=== PATIENT | female | born 1945 | race Caucasian/White ===

== ENCOUNTER 2016-06-17 18:31 | Emergency (ER) | payer OTHER ==
[~2016-06-17] VITALS: Ht 160 cm; Wt 93.0 kg
[~2016-06-17 18:31] MED LIST: AMOX-CLAV 875-1 EACH PO; ASPIRIN CHILDRE81 MG PO; ASPIRIN EC81 M1 PO; CYCLOPHOSPHAMIDE1 GM IV; DEXAMETHASONE4 M1 PO; DOCUSATE SODIU100 M3 PO; KLOR-CON M1010 ME1 PO; LISINOPRIL5 M1 PO; LORAZEPAM0.5 M1 PO; MULTI-DAY VITA1 EACH PO; MYRBETRIQ50 M1 PO; NEULASTA6 MG/0.61 INJ; ONDANSETRON ODT8 M1 PO; PRILOSEC OTC20 M1 PO; PRINIVIL 5MG5 MG PO; PROCHLORPERAZINE5 M2 PO; SENNA-TIME S T1 EACH PO; TAXOTERE20 MG/1 ML IV; VITAMIN D31000 UNI1 PO; ZOFRAN ODT4 M1 SL; [UNRECOGNIZED DRUG - REMARK] IV
[2016-06-17 18:50] VITALS: BP 158/86
--- NOTE | 2016-06-17 19:40 | ED SKIN/ALLERGY COMPLAINT ---
History of Present Illness General Chief Complaint: Animal/Insect Bite Stated Complaint: TICK IN ARM Source: patient, friend Exam Limitations: no limitations Vital Signs & Intake/Output Vital Signs & Intake/Output Vital Signs Date Time Temp Pulse Resp B/P Pulse O2 O2 Flow FiO2 Ox Delivery Rate 06/17 1850 98.6 94 18 158/86 98 Room Air ED Intake and Output 06/18 0000 06/17 1200 Intake Total 0 Output Total Balance 0 Intake, Oral 0 Patient 205 lb Weight Allergies Coded Allergies: oxycodone (VOMITING 11/03/15) Reconcile Medications Anastrozole 1 MG TABLET 1 TAB PO DAILY BREAST CANCER (Reported) Aspirin (Ecotrin*) 81 MG TABLET.DR 1 TAB PO DAILY HEART/BLOOD (Reported) Cholecalciferol (Vitamin D3) (Vitamin D3) 1,000 UNIT CAPSULE 1 CAP PO DAILY SUPPLEMENT (Reported) Lisinopril 5 MG TABLET 1 TAB PO DAILY BP (Reported) Multivitamin (Multi-Day Vitamins) 1 EACH TABLET 1 TAB PO DAILY SUPPLEMENT ( Reported) Potassium Chloride (Klor-Con M10) 10 MEQ TAB.ER.PRT 1 TAB PO EOD SUPPLEMENT ( Reported) Triage Note: RECEIVED 70 YO FEMALE C/O POSSIBLE TICK BITE TO RIGHT UPPER ARM. HEAD MAY STILL BE IN ARM, REDNESS AROUND BITE AREA. Triage Nurses Notes Reviewed? yes HPI: Patient is a 70-year-old female presents complaining of tooth bite to her right arm. Patient noticed a tick present this evening. Patient believes that she sustained a tick bite approximately 2-3 hours prior while she was walking her daughter's dog. Mild itchy sensation to the area. Pain is 0 out of 10. Patient reports that someone attempted to remove the tick prior to arrival and a portion of the tick remains. Mild redness surrounding the tick bite. Patient denies fevers, joint pain. (AD DURHAM,NIKKI) Past History Travel History Traveled to [place] past 21 day No Medical History Any Pertinent Medical History? see below for history Neurological: NONE EENT: NONE Cardiovascular: hypertension Respiratory: NONE Gastrointestinal: NONE Hepatic: NONE Renal: NONE Musculoskeletal: NONE Psychiatric: NONE Endocrine: NONE Blood Disorders: NONE Cancer(s): BREAST R INTERNAL MEDICINE HOSPITALIST/Reproductive: NONE History of MRSA: No History of VRE: No History of CDIFF: No Pneumonia Vaccine: 12/04/12 Surgical History Surgical History: cholecystectomy, hysterectomy, spinal fusion Psychosocial History Who do you live with Family Services at Home None What is your primary language [place] Tobacco Use: Never used Family History Family History, If Any: MOTHER, . Blood clots SON Blood clots Hx Contributory? No (NIKKI LEE) Review of Systems Review of Systems Constitutional: Denies: chills, fever. GI: Reports: no symptoms. Musculoskeletal: Reports: no symptoms. Skin: Reports: see HPI. Neurological/Psychological: Reports: no symptoms. Hematologic/Endocrine: Reports: no symptoms. Immunologic/Allergic: Reports: no symptoms. (NIKKI LEE) Physical Exam Physical Exam General Appearance: well developed/nourished, alert, awake Head: atraumatic, normal appearance Eyes: Bilateral: normal appearance. Ears, Nose, Throat: hearing grossly normal Neck: normal inspection, supple, full range of motion Respiratory: no respiratory distress Back: normal inspection, normal range of motion Extremities: tick bite to right lateral distal arm. Small portion of tick remains embedded. 1-2 cm of surrounding erythema. Neurologic/Psych: no motor/sensory deficits, awake, alert, oriented x 3, normal gait, normal mood/affect Skin: see extremities exam (NIKKI LEE) Progress Differential Diagnosis: abscess/cellulitis, allergic reaction, lyme disease, tick bite Plan of Care: Chlorhexidine wipe to the area. Tweezers used to remove part of the remaining embedded tick. Small portion remained. Discussed with patient attempting to remove the remaining portion versus allowing to remain. Discussed with patient that current recommendations from up-to-date recommend not continuing to attempt to remove. Tick present for less than 24 hours, labs and empiric antibiotics deferred. (NIKKI LEE) Departure Departure Time of Disposition: 1938 Disposition: HOME OR SELF CARE Condition: Stable Clinical Impression Primary Impression: Tick bite of right upper arm Qualifiers: Encounter type: initial encounter Qualified Codes: S40.861A - Insect bite (nonvenomous) of right upper arm, initial encounter; W57.XXXA - Bitten or stung by nonvenomous insect and other nonvenomous arthropods, initial encounter Referrals: KEISHA PAPPAS MD (PCP/Family) Additional Instructions: Apply bacitracin to the area of open skin 1-2 times a day. Follow-up with your doctor if you develop a "bull's eye rash", fevers, joint pain, fatigue, or worsening of symptoms. Departure Forms: Customer Survey General Discharge Information (AD DURHAM,NIKKI) PA/DAY CARE AIDE Co-Sign Statement Statement: ED Attending supervision documentation- [] I saw and evaluated the patient. I have also reviewed all the pertinent lab results and diagnostic results. I agree with the findings and the plan of care as documented in the PA's/DAY CARE AIDE's documentation. [x] I have reviewed the ED Record and agree with the PA's/DAY CARE AIDE's documentation. [] Additions or exceptions (if any) to the PAs/DAY CARE AIDE's note and plan are summarized below: [] (CLEMENCIA ANDINO,DEDE August)
[2016-06-17] MEDS ORDERED: ANASTROZOLE1 M1 PO (19:43)
== END 2016-06-17 19:51 ==
LOC: ERH 18:31
DX: S40.861A Insect bite (nonvenomous) of right upper arm, initial encounter (principal); W57.XXXA Bitten or stung by nonvenomous insect and other nonvenomous arthropods, initial encounter